=== PATIENT | female | born 1960 | race Caucasian/White ===

== ENCOUNTER 2020-04-15 20:22 | Emergency (ER) | payer BC ==
[~2020-04-15] VITALS: Ht 167.6 cm; Wt 109.0 kg
--- NOTE | 2020-04-15 20:33 | PHYS DOC ---
General Adult HPI: HPI: ".. I tripped on a box... and fell backwards... I tried to catch myself.. and tom landed on this Rt. elbow... but the whole Rt. arm hurts.. even my wrist... and I also banged up my Lt. leg.. and ankle.. I went down hard..." Patient is a 59 year old female who presents with above hx and complaints and fall. Patient denies any loss of consciousness or dizziness prior to the fall. Patient localizes pain in right deltoid, humerus, elbow and wrist. Patient is right-hand dominant. Distal sensation in fingertips rt hand is less than left hand. Obvious displaced fracture Rt. wrist. Capillary refill is 3 seconds in Rt. finger tips as compared to Lt. Patient also complained of pain in left tib- fib area and ankle. Patient was able to bear weight on left leg after the fall. Pt. follows with Dr. Marsh, request referral to [facility] if need for surgery. Pt. denies other injury at this time. Review of Systems: Review of Systems: Constitutional: Denies fever or chills Eyes: Denies change in visual acuity HENT: Denies nasal congestion or sore throat Respiratory: Denies cough or shortness of breath Cardiovascular: Denies chest pain or edema GI: Denies abdominal pain, nausea, vomiting, bloody stools or diarrhea : Denies dysuria Musculoskeletal: Complains of right arm pain and left leg pain Integument: Denies rash Neurologic: Denies headache, focal weakness or sensory changes Endocrine: Denies polyuria or polydipsia Lymphatic: Denies swollen glands Psychiatric: Denies depression or anxiety Heart Score: Risk Factors: Risk Factors: DM, Current or recent (<one month) smoker, HTN, HLP, family history of CAD, obesity. Risk Scores: Score 0 - 3: 2.5% MACE over next 6 weeks - Discharge Home Score 4 - 6: 20.3% MACE over next 6 weeks - Admit for Clinical Observation Score 7 - 10: 72.7% MACE over next 6 weeks - Early Invasive Strategies Family History: Family History: Noncontributory to presentation Current Medications: Current Meds: See nursing for home meds Allergies: Allergies: Allergic to atropine Physical Exam: PE: Constitutional: in acute distress, non-toxic appearance. [] HENT: Normocephalic, atraumatic, bilateral external ears normal, oropharynx moist, no oral exudates, nose normal. [] Eyes: PERRLA, EOMI, conjunctiva normal, no discharge. Glasses. Neck: Normal range of motion, no tenderness, supple, no stridor. [] Cardiovascular:Heart rate regular rhythm, no murmur [] Lungs & Thorax: Bilateral breath sounds equal apex on auscultation [] Abdomen: Bowel sounds normal, soft, no tenderness, no masses, no pulsatile masses. [] Skin: Warm, dry, no erythema, no rash. Some skin lesions Rt. forearm. Back: No tenderness, no CVA tenderness. [] Extremities: No tenderness, no cyanosis, no clubbing, ROM intact, no edema. Except the findings in right shoulder right humerus right elbow and right wrist pain. Left lower tib-fib and ankle pain Neurologic: Alert and oriented X 3, normal motor function, normal sensory function, no focal deficits noted. [] Psychologic: Affect anxious l, judgement normal, mood normal. [] EKG: EKG: My interpretation EKG shows a sinus rhythm at 62 bpm. No findings acute STEMI with contralateral changes. Does have slightly prolonged [place] interval at 270 milliseconds. [] Radiology/Procedures: Radiology/Procedures: [facility] [address] [place] [id number] IMAGING REPORT Signed PATIENT: PRINCESS TANG ACCOUNT: [id number] : 1960 LOCATION: ER AGE: 59 SEX: F EXAM STATUS: REG ER ORD. PHYSICIAN: TANJA SANCHEZ MD REASON: Fall, left lower leg pain with burning PROCEDURE: TIBIA FIBULA LEFT RIGHT TIBIA FIBULA AP LATERAL Clinical Indication: Reason: Fall, left lower leg pain with burning / Spl. Instructions: / History: Comparison: None. Findings: The knee and ankle joints are grossly intact. There is degenerative change of the knee. There is moderate inferior calcaneal bone spur. There is no acute fracture or dislocation. There is no significant soft tissue swelling. No radiopaque foreign body is identified. IMPRESSION: No acute fracture. Electronically signed by: Elgin Ibarra MD (04/15/2020 10:57 PM) [facility] DICTATED AND SIGNED BY: ELGIN IBARRA MD DATE: 04/15/20 8400 CC: TANJA SANCHEZ MD; RYNE MARSH MD ~ [][address] [address] [address] IMAGING REPORT Signed PATIENT: PRINCESS TANG ACCOUNT: [id number] : 1960 LOCATION: ER AGE: 59 SEX: F EXAM STATUS: REG ER ORD. PHYSICIAN: TANJA SANCHEZ MD REASON: Fall, right arm pain with wrist deformity PROCEDURE: FOREARM RIGHT Examination: WRIST 3V RIGHT, FOREARM RIGHT, HUMERUS RIGHT History: Reason: Fall, right arm pain with wrist deformity / Spl. Instructions: / History: Comparison/Correlation: None Findings: A total of 2 images of the right humerus, 2 images of the right forearm, and 3 images of the right wrist were provided. Limited acromiohumeral distance is evident. Acromioclavicular joint space narrowing is present. Glenohumeral joint relationship is grossly unremarkable. Humerus is intact. Comminuted displaced fractures of the distal radial metaphysis are noted with intra-articular extension. Longitudinal extension into the diametaphyseal region also seen. Displaced ulnar styloid fracture. Osteopenia evident. Impression: Superiorly displaced comminuted intra-articular fractures involving the distal radial metaphysis. Displaced ulnar styloid fracture. Humerus is unremarkable. Electronically signed by: Americo Harrington MD (04/15/2020 10:31 PM) [facility] DICTATED AND SIGNED BY: AMERICO HARRINGTON MD DATE: 04/15/202 CC: TANJA SANCHEZ MD; RYNE MARSH MD ~ IMAGING REPORT Signed PATIENT: PRINCESS TANG ACCOUNT: [id number] : 1960 LOCATION: ER AGE: 59 SEX: F EXAM STATUS: REG ER ORD. PHYSICIAN: TANJA SANCHEZ MD REASON: post splint PROCEDURE: WRIST 3V RIGHT WRIST 3V RIGHT Clinical Indication: Reason: post splint / Spl. Instructions: / History: Comparison: Right wrist, 3 views, earlier same day. Findings: Cast material now overlies the wrist. Redemonstrated comminuted fracture of the distal radius with intra-articular extension. Fracture fragment alignment is improved. Redemonstrated mildly displaced fracture of the ulnar styloid. There is soft tissue swelling of the wrist. There is no dislocation. IMPRESSION: Improved alignment of comminuted fracture of the distal radius. Electronically signed by: Elgin Ibarra MD (04/15/2020 11:09 PM) [facility] DICTATED AND SIGNED BY: ELGIN IBARRA MD DATE: 04/15/202308 CC: TANJA SANCEHZ MD; RYNE MARSH MD ~ Course & Med Decision Making: Course & Med Decision Making Pertinent Labs and Imaging studies reviewed. (See chart for details) Procedure note-splint placement-review of x-rays and patient's complaints of decreased sensation and distal capillary refill in right fingers-injected area of radial laceration with 3 cc of Sensorcaine / Lidocaine after cleaning of skin briskly with rubbing alcohol. Gentle traction and then splint application. Patient had return of distal capillary refill equal to left hand and reported marked improvement of sensation in fingertips of right hand. Discussed presentation, testing and treatment with at [facility]. Pt. to call in Am [phone]. Patient to return if any increased pain or decreased sensation or circulation fingertips. Patient must elevate arm and wear sling. Patient take Tylenol ibuprofen for pain for marked pain may take Percocet. Patient push fruit juices. With stop current weight loss medication suspect this is causing her hypokalemia. Must follow-up primary care. Must keep follow-up with orthopedics. Return if any concerns. Impression: 1. Trip and fall 2. Comminuted Fx Radius 3. Hypokalemia 2.8 4. DM 176 5. Dehydration [] Dragon Disclaimer: Lb Disclaimer: This electronic medical record was generated, in whole or in part, using a voice recognition dictation system. Departure Departure: Disposition: 01 HOME/RESIDENCE PRIOR TO ADM Condition: STABLE Scripts Oxycodone HCl/Acetaminophen (Percocet 5-325 mg Tablet) 1 Each Tablet 1 EACH PO QIDPRN PRN for PAIN, #30 TAB Prov: TANJA SANCHEZ MD 04/16/20 Justification of Admission: Justification of Admission: Justification of Admission Dx: N/A Dragon Disclaimer This chart was dictated in whole or in part using Voice Recognition software in a busy, high-work load, and often noisy Emergency Department environment. It may contain unintended and wholly unrecognized errors or omissions. TANJA SANCHEZ MD Apr 15, 2020 20:33
[2020-04-15] MEDS ORDERED: ONDANSETRON PF 4 MG/2 ML VIAL. IVP ONE (21:00)
[2020-04-15] MEDS: MORPHINE SULFATE 10 MG/ML SYRINGE. SQ ONE (21:07)
[2020-04-15] MEDS: ONDANSETRON ODT 4 MG TAB.RAPDIS PO ONE (21:07)
[2020-04-15] MEDS: IV RINGERS SOLUTION,LACTATED 1,000 ML IV SCH (22:06)
[2020-04-15] MEDS: LIDOCAINE 2% 20 ML VIAL. IJ ONE (22:20)
[2020-04-15] MEDS: BUPIVACAINE PF 0.75% 10 ML VIAL IJ ONE (22:21)
--- NOTE | 2020-04-15 22:22 | EKG ---
[address] [address] Test Date: 2020-04-15 Test Time: 22:13:55 Pat Name: PRINCESS TANG Department: Room: Gender: F Investment Consultant: : 1960 Requested By: TANJA SANCHEZ Order Number: [id number] Reading MD: Measurements Intervals [place] Rate: 62 P: 59 RI: 270 QRS: 20 QRSD: 92 T: 27 QT: 430 QTc: 439 Interpretive Statements SINUS RHYTHM PROLONGED RI INTERVAL ABNORMAL ECG RI6.02 No previous ECG available for comparison
[2020-04-15 22:28] LABS: BASO % 0 % (0-3); EOS # 0.1 x10^3/uL (0.0-0.7); EOS % 1 % (0-3); HEMATOCRIT 40.4 % (36.0-47.0); HEMOGLOBIN 13.4 g/dL (12.0-15.5); LYMPH # 1.6 x10^3/uL (1.0-4.8); LYMPH % 16 % (24-48); MEAN CORPUSCULAR HEMOGLOBIN 31 pg (25-35); MEAN CORPUSCULAR HGB CONC 33 g/dL (31-37); MEAN CORPUSCULAR VOLUME 93 fL (79-100); MONO # 0.7 x10^3/uL (0.0-1.1); MONO % 7 % (0-9); NEUT # 7.9 x10^3uL (1.8-7.7); NEUT % 77 % (31-73); PLATELET COUNT 266 x10^3/uL (140-400); RED BLOOD COUNT 4.37 x10^6/uL (3.50-5.40); RED CELL DISTRIBUTION WIDTH 13.4 % (11.5-14.5); WHITE BLOOD COUNT 10.4 x10^3/uL (4.0-11.0)
--- NOTE | 2020-04-15 22:34 | RAD ---
Examination: WRIST 3V RIGHT, FOREARM RIGHT, HUMERUS RIGHT History: Reason: Fall, right arm pain with wrist deformity / Spl. Instructions: / History: Comparison/Correlation: None Findings: A total of 2 images of the right humerus, 2 images of the right forearm, and 3 images of the right wrist were provided. Limited acromiohumeral distance is evident. Acromioclavicular joint space narrowing is present. Glenohumeral joint relationship is grossly unremarkable. Humerus is intact. Comminuted displaced fractures of the distal radial metaphysis are noted with intra-articular extension. Longitudinal extension into the diametaphyseal region also seen. Displaced ulnar styloid fracture. Osteopenia evident. Impression: Superiorly displaced comminuted intra-articular fractures involving the distal radial metaphysis. Displaced ulnar styloid fracture. Humerus is unremarkable. Electronically signed by: Americo Rodriguez MD (04/15/2020 10:31 PM) [id number]
[2020-04-15 22:50] LABS: ALBUMIN 4.2 g/dL (3.4-5.0); CALCIUM 9.3 mg/dL (8.5-10.1); CREATININE 1.3 mg/dL (0.6-1.0); DIRECT BILIRUBIN 0.1 mg/dL (0.0-0.2); GFR 41.9; MAGNESIUM 2.1 mg/dL (1.8-2.4); TOTAL BILIRUBIN 0.3 mg/dL (0.2-1.0); TOTAL PROTEIN 7.8 g/dL (6.4-8.2)
--- NOTE | 2020-04-15 22:58 | RAD ---
PORTABLE CHEST 1V Clinical Indication: Reason: Fall, right chest and shoulder pain / Spl. Instructions: / History: Comparison: None. Findings: The cardiomediastinal silhouette is normal. Lungs are clear. There is no pneumothorax. No pleural effusion is appreciated. No acute bone abnormality. IMPRESSION: No acute cardiopulmonary process. Electronically signed by: Elgin Ibarra MD (04/15/2020 10:56 PM) [facility]
--- NOTE | 2020-04-15 23:00 | RAD ---
RIGHT TIBIA FIBULA AP LATERAL Clinical Indication: Reason: Fall, left lower leg pain with burning / Spl. Instructions: / History: Comparison: None. Findings: The knee and ankle joints are grossly intact. There is degenerative change of the knee. There is moderate inferior calcaneal bone spur. There is no acute fracture or dislocation. There is no significant soft tissue swelling. No radiopaque foreign body is identified. IMPRESSION: No acute fracture. Electronically signed by: Elgin Ibarra MD (04/15/2020 10:57 PM) [facility]
[2020-04-15 23:04] LABS: POTASSIUM 2.8 mmol/L (3.5-5.1)
--- NOTE | 2020-04-15 23:12 | RAD ---
WRIST 3V RIGHT Clinical Indication: Reason: post splint / Spl. Instructions: / History: Comparison: Right wrist, 3 views, earlier same day. Findings: Cast material now overlies the wrist. Redemonstrated comminuted fracture of the distal radius with intra-articular extension. Fracture fragment alignment is improved. Redemonstrated mildly displaced fracture of the ulnar styloid. There is soft tissue swelling of the wrist. There is no dislocation. IMPRESSION: Improved alignment of comminuted fracture of the distal radius. Electronically signed by: Elgin Ibarra MD (04/15/2020 11:09 PM) [facility]
[2020-04-15] MEDS: POTASSIUM CHLORIDE 20 MEQ TABLET.ER. PO ONE (23:31)
[2020-04-16 01:28] VITALS: BP 126/65
[2020-04-16] MEDS ORDERED: OXYC-325 PO (01:49)
== END 2020-04-16 01:40 | disposition home or self-care (01) ==
LOC: ER 20:22
DX: T14.8XXA Other injury of unspecified body region, initial encounter (principal); E87.6 Hypokalemia; E11.9 Type 2 diabetes mellitus without complications; E86.0 Dehydration; M79.605 Pain in left leg; Z88.8 Allergy status to other drugs, medicaments and biological substances; W01.0XXA Fall on same level from slipping, tripping and stumbling without subsequent striking against object, initial encounter; Y93.89 Activity, other specified; Y92.89 Other specified places as the place of occurrence of the external cause; Y99.8 Other external cause status
CPT/HCPCS: 29125; 36415; 71045; 73060; 73090; 73110; 73590; 80048; 80076; 82550; 83690; 83735; 83880; 84443; 84484; 85025; 85379; 85610; 85730; 93005; 96360; 96361; 96372; 99285; J2001; J2270; J3490; J7120; Q0162

== ENCOUNTER → 2021-12-30 | Outpatient (CLI) | payer BC ==
[~2021-12-30] MED LIST: OXYC-325 PO
--- NOTE | 2021-12-30 16:25 | RAD ---
Exam: XR KNEE _3 VIEWS_LT History: Pain. Comparison: Left tib-fib radiographs 04/15/2020 Findings: Osseous mineralization is normal. No acute fracture or dislocation. No significant knee effusion. The re is moderate narrowing of the medial tibiofemoral compartment and small tricompartmental osteophyte formation. No focal soft tissue swelling. Impression: 1. No acute osseous abnormalities left knee. Degenerative changes greatest at the medial tibiofemora l compartment. Electronically signed by: Miguel Ángel Feliz MD (12/30/2021 4:22 PM) [id number]
== END ==
LOC: RAD 12:25
PROVIDERS: ATTEND Family Medicine
DX: M17.12 Unilateral primary osteoarthritis, left knee (principal); M25.762 Osteophyte, left knee
CPT/HCPCS: 73562